=== PATIENT | female | born 1940 | race Caucasian/White ===

== ENCOUNTER 2016-07-10 15:29 | Emergency (ER) | payer OTHER, MEDICAID ==
[~2016-07-10] VITALS: Ht 154.9 cm; Wt 49.9 kg
[2016-07-10 16:30] VITALS: BP_SYST 137
[2016-07-10 18:30] VITALS: BP_SYST 128
== END 2016-07-10 18:30 | disposition home or self-care (01) ==
LOC: SED 15:29
DX: H61.22 Impacted cerumen, left ear (principal)
CPT/HCPCS: 99282

== ENCOUNTER 2016-09-13 13:15 | Emergency (ER) | payer OTHER, MEDICAID ==
[~2016-09-13] VITALS: Ht 157.5 cm; Wt 70.3 kg
[2016-09-13 13:41] VITALS: BP_SYST 145
[2016-09-13 13:58] VITALS: BP_SYST 145
== END 2016-09-13 13:58 | disposition home or self-care (01) ==
LOC: SED 13:15
DX: J02.9 Acute pharyngitis, unspecified (principal); F41.9 Anxiety disorder, unspecified; T36.0X5A Adverse effect of penicillins, initial encounter; Y92.89 Other specified places as the place of occurrence of the external cause
CPT/HCPCS: 99283

== ENCOUNTER 2016-10-01 10:15 | Emergency (ER) | payer OTHER, MEDICAID ==
[~2016-10-01] VITALS: Ht 157.5 cm; Wt 49.9 kg
[2016-10-01 10:25] VITALS: BP_SYST 129
--- NOTE | 2016-10-01 10:25 | NUR ---
Placed in room 8 . To gown for exam. Side rails up.Report given to felicia MEJIA .
--- NOTE | 2016-10-01 10:26 | NUR ---
Pt stable, states has had rash to right chest for four days w/ itchiness and slight pain to touch, denies any chest pain/SOB, denies any allergies/sensitivities or use of new products/foods. Reddened area noted to right upper chest, not raised. No other complaints/injuries per pt or noted.
--- NOTE | 2016-10-01 10:31 | NUR ---
ER at bedside examining patient.
[2016-10-01 10:57] VITALS: BP_SYST 125
--- NOTE | 2016-10-01 10:57 | NUR ---
Patient given written and verbal discharge instructions and verbalizes understanding. ER MD discussed with patient the results and treatment provided. Patient in stable condition. ID arm band removed. 2 RX given. Patient educated on pain management and to follow up with PMD within 2 days. Opportunity for questions provided and answered.
== END 2016-10-01 10:57 | disposition home or self-care (01) ==
LOC: SED 10:15
DX: L30.9 Dermatitis, unspecified (principal); H61.23 Impacted cerumen, bilateral
CPT/HCPCS: 99283

== ENCOUNTER 2017-01-30 11:02 | Emergency (ER) | payer OTHER, MEDICAID ==
[~2017-01-30] VITALS: Ht 167.6 cm; Wt 52.2 kg
[2017-01-30 11:02] VITALS: BP_SYST 139
--- NOTE | 2017-01-30 11:08 | NUR ---
Ambulatory to bed 1
--- NOTE | 2017-01-30 11:10 | NUR ---
Pt complains of headache since this morning. Per patient, woke up with headache. Pt denies fever, N/V, or diarrhea. Pt also complains of right shoulder pain. No deformities or bruising noted. Pt is not in distress. No other injuries/complaints per patient or noted.
--- NOTE | 2017-01-30 11:59 | NUR ---
Dr. Ortega at bedside for evaluation
[2017-01-30 12:34] LABS: BASOPHILS % (AUTO) 0.7 % (0.0-2.0); EOSINOPHILS # (AUTO) 0.2 K/uL (0.0-0.4); HEMATOCRIT 38.3 % (36-48); HEMOGLOBIN 12.6 g/dL (12.0-16.0); LYMPHOCYTES # (AUTO) 1.5 K/uL (1.0-5.5); LYMPHOCYTES % (AUTO) 29.6 % (20.5-51.5); MEAN CORPUSCULAR HEMOGLOBIN 29 pg (27-31); MEAN CORPUSCULAR HGB CONC 33 % (32-36); MEAN CORPUSCULAR VOLUME 88 fL (79.0-98.0); MONOCYTES # (AUTO) 0.4 K/uL (0.0-1.0); MONOCYTES % (AUTO) 7.8 % (1.7-9.3); NEUTROPHILS # (AUTO) 3.1 K/uL (1.8-7.7); NEUTROPHILS % (AUTO) 57.9 % (40.0-70.0); PLATELET COUNT (AUTO) 259 K/uL (130-430); RED BLOOD CELL COUNT(AUTO) 4.34 MIL/uL (4.2-6.2); RED CELL DISTRIBUTION WIDTH 11.5 % (9.0-15.0); WHITE BLOOD COUNT (AUTO) 5.2 K/uL (4.8-10.8)
--- NOTE | 2017-01-30 12:35 | NUR ---
TAKEN TO RADIOLOGY VIA [facility]
--- NOTE | 2017-01-30 12:45 | NUR ---
Pt returned from radiology in stable condition.
[2017-01-30 12:46] LABS: ANION GAP 7 (5-15); CALCIUM 8.4 mg/dL (8.4-11.0); CHLORIDE 106 mmol/L (98-107); CREATININE 0.82 mg/dL (0.55-1.30); GLUCOSE 88 mg/dL (70-99); POTASSIUM 3.7 mmol/L (3.5-5.1); SODIUM SERUM 139 mmol/L (136-145); UREA NITROGEN, BLOOD 15 mg/dL (8-21)
[2017-01-30 12:49] LABS: PROTHROMBIN TIME 9.9 SECS (9.5-12.5)
[2017-01-30 13:05] LABS: ALANINE AMINOTRANSFERASE 21 U/L (12-78); ALBUMIN 3.9 g/dL (3.4-4.8); ASPARTATE AMINOTRANSFERASE 17 U/L (10-37); THYROID STIMULATING HORMONE 1.18 uIu/mL (0.34-4.82); TOTAL BILIRUBIN 0.4 mg/dL (0.0-1.0)
--- NOTE | 2017-01-30 13:26 | NUR ---
Pt resting comfortably in bed. Will continue to monitor.
[2017-01-30 13:40] LABS: BILIRUBIN,URINE NEGATIVE (NEGATIVE); BLOOD, URINE NEGATIVE (NEGATIVE); CLARITY/URINE SL HAZY (CLEAR); COLOR,URINE YELLOW (YELLOW); GLUCOSE,URINE NEGATIVE (NEGATIVE); KETONES,URINE NEGATIVE (NEGATIVE); LEUKOCYTE ESTERASE ,URINE NEGATIVE (NEGATIVE); NITRITE, URINE NEGATIVE (NEGATIVE); PH,URINE 5.5 (5.0-8.0); PROTEIN URINE NEGATIVE (NEGATIVE); UROBILINOGEN,URINE 0.2 (0.2-1.0)
[2017-01-30] MEDS ORDERED: ACETAMINOPHEN 325 MG TABLET PO ONE (14:15)
[2017-01-30 14:50] VITALS: BP_SYST 137
--- NOTE | 2017-01-30 14:50 | NUR ---
Patient given written and verbal discharge instructions and verbalizes understanding. ER MD discussed with patient the results and treatment provided. Patient in stable condition. ID arm band removed. No Rx given. Patient educated on pain management and to follow up with PMD. Pain Scale 2. Opportunity for questions provided and answered.
== END 2017-01-30 14:50 | disposition home or self-care (01) ==
LOC: SED 11:02
DX: G43.909 Migraine, unspecified, not intractable, without status migrainosus (principal); M25.512 Pain in left shoulder
CPT/HCPCS: 36415; 70450-TC; 71010; 73030; 74000-TC; 80053; 81003; 83880; 84443-TC; 84484; 85025; 85610-TC; 93005; 99285

== ENCOUNTER 2017-04-13 10:06 | Emergency (ER) | payer MEDICAID, OTHER ==
[~2017-04-13] VITALS: Ht 152.4 cm; Wt 49.9 kg
[2017-04-13 10:13] VITALS: BP_SYST 129
[2017-04-13] MEDS ORDERED: IBUPROFEN 600 MG TABLET PO ONE (10:45)
[2017-04-13] MEDS ORDERED: HYDROcodone/ACETAMIN 7.5-325 MG TAB PO ONE (10:45)
[2017-04-13 10:55] LABS: BASOPHILS # (AUTO) 0.1 K/uL (0.0-0.2); EOSINOPHILS # (AUTO) 0.4 K/uL (0.0-0.4); EOSINOPHILS % (AUTO) 7.2 % (0.0-4.0); HEMATOCRIT 41.2 % (36-48); HEMOGLOBIN 13.8 g/dL (12.0-16.0); LYMPHOCYTES # (AUTO) 1.4 K/uL (1.0-5.5); LYMPHOCYTES % (AUTO) 22.2 % (20.5-51.5); MEAN CORPUSCULAR HEMOGLOBIN 30 pg (27-31); MEAN CORPUSCULAR HGB CONC 34 % (32-36); MEAN CORPUSCULAR VOLUME 88 fL (79.0-98.0); MONOCYTES # (AUTO) 0.4 K/uL (0.0-1.0); NEUTROPHILS # (AUTO) 3.9 K/uL (1.8-7.7); NEUTROPHILS % (AUTO) 63.6 % (40.0-70.0); PLATELET COUNT (AUTO) 305 K/uL (130-430); RED BLOOD CELL COUNT(AUTO) 4.67 MIL/uL (4.2-6.2); WHITE BLOOD COUNT (AUTO) 6.2 K/uL (4.8-10.8)
[2017-04-13 11:09] LABS: ANION GAP 4 (5-15); CALCIUM 9.7 mg/dL (8.4-11.0); CHLORIDE 103 mmol/L (98-107); CREATININE 0.72 mg/dL (0.55-1.30); GLUCOSE 116 mg/dL (70-99); SODIUM SERUM 138 mmol/L (136-145); UREA NITROGEN, BLOOD 19 mg/dL (8-21)
[2017-04-13 11:11] LABS: PROTHROMBIN TIME 9.7 SECS (9.5-12.5)
[2017-04-13 11:14] LABS: ALANINE AMINOTRANSFERASE 27 U/L (12-78); ASPARTATE AMINOTRANSFERASE 26 U/L (10-37); TOTAL BILIRUBIN 0.4 mg/dL (0.0-1.0)
[2017-04-13 11:19] LABS: BILIRUBIN,URINE NEGATIVE (NEGATIVE); CLARITY/URINE CLEAR (CLEAR); COLOR,URINE YELLOW (YELLOW); GLUCOSE,URINE NEGATIVE (NEGATIVE); KETONES,URINE NEGATIVE (NEGATIVE); LEUKOCYTE ESTERASE ,URINE NEGATIVE (NEGATIVE); NITRITE, URINE NEGATIVE (NEGATIVE); PH,URINE 6.5 (5.0-8.0); PROTEIN URINE NEGATIVE (NEGATIVE); UROBILINOGEN,URINE 0.2 (0.2-1.0)
[2017-04-13 11:20] LABS: BLOOD, URINE TRACE (NEGATIVE)
[2017-04-13 11:26] LABS: BACTERIA,URINE RARE /HPF (None Seen); RBC,URINE 0-3 /HPF (0-3); WBC,URINE 0-3 /HPF (0-3)
[2017-04-13 12:42] VITALS: BP_SYST 122
== END 2017-04-13 12:42 | disposition home or self-care (01) ==
LOC: SED 10:06
DX: R51 Headache (principal)
CPT/HCPCS: 36415; 80053; 81000-TC; 85025; 85610-TC; 85730-TC; 99284

== ENCOUNTER 2017-07-21 13:19 | Emergency (ER) | payer OTHER ==
[~2017-07-21] VITALS: Ht 154.9 cm; Wt 52.2 kg
[2017-07-21 13:28] VITALS: BP_SYST 122
[2017-07-21] MEDS ORDERED: KETOROLAC TROMETHAMINE 60 MG/2 ML VIAL IM ONE (14:00)
[2017-07-21] MEDS ORDERED: IBUPROFEN 600 MG TABLET PO ONE (14:15)
[2017-07-21 14:21] VITALS: BP_SYST 122
== END 2017-07-21 14:21 | disposition home or self-care (01) ==
LOC: SED 13:19
DX: J02.9 Acute pharyngitis, unspecified (principal); G43.909 Migraine, unspecified, not intractable, without status migrainosus
CPT/HCPCS: 99283; J1885

== ENCOUNTER 2018-01-01 08:47 | Emergency (ER) | payer OTHER ==
[~2018-01-01] VITALS: Ht 165.1 cm; Wt 51.7 kg
--- NOTE | 2018-01-01 08:47 | NUR ---
Patient placed in bed 7 here for headache along with sore throat since yesterday. Pt self medicated with "Excedrin" yesterday with no relief.
[2018-01-01 08:54] VITALS: BP_SYST 117
--- NOTE | 2018-01-01 09:00 | NUR ---
MD White at bedside.
[2018-01-01] MEDS ORDERED: KETOROLAC TROMETHAMINE 30 MG VIAL IM ONE (09:15)
[2018-01-01] MEDS ORDERED: PROCHLORPERAZINE EDISYLATE 10 MG/2 ML VIAL IM ONE (09:15)
--- NOTE | 2018-01-01 09:21 | NUR ---
Patient requesting to PO meds instead of IM Injections. MD White made aware of pt request.
[2018-01-01] MEDS ORDERED: IBUPROFEN 600 MG TABLET PO ONE (09:30)
--- NOTE | 2018-01-01 09:38 | NUR ---
Patient given written and verbal discharge instructions and verbalizes understanding. ER MD discussed with patient the results and treatment provided. Patient in stable condition. ID arm band removed. Rx of cepacol,tramadol given. Patient educated on pain management and to follow up with PMD. Pain Scale . Opportunity for questions provided and answered. Medication side effect fact sheet provided.
[2018-01-01 09:49] VITALS: BP_SYST 121
== END 2018-01-01 09:38 | disposition home or self-care (01) ==
LOC: SED 08:47
DX: G43.909 Migraine, unspecified, not intractable, without status migrainosus (principal); J02.9 Acute pharyngitis, unspecified; H53.149 Visual discomfort, unspecified
CPT/HCPCS: 99283; J0780; J1885

== ENCOUNTER 2018-06-21 00:58 | Inpatient (IN) | payer OTHER ==
[~2018-06-21] VITALS: Ht 137.2 cm; Wt 49.9 kg
[2018-06-21 01:30] VITALS: BP_SYST 130
[2018-06-21] MEDS ORDERED: KETOROLAC TROMETHAMINE 30 MG VIAL IVP ONE ×2 (02:00→05:15)
[2018-06-21 02:19] LABS: MEAN CORPUSCULAR HEMOGLOBIN 30 pg (27-31); MEAN CORPUSCULAR HGB CONC 33 % (32-36); MEAN CORPUSCULAR VOLUME 89 fL (79.0-98.0); NEUTROPHILS % (AUTO) 60.9 % (40.0-70.0); PLATELET COUNT (AUTO) 239 K/uL (130-430); RED BLOOD CELL COUNT(AUTO) 2.18 MIL/uL (4.2-6.2); RED CELL DISTRIBUTION WIDTH 13.2 % (9.0-15.0); WHITE BLOOD COUNT (AUTO) 5.4 K/uL (4.8-10.8)
[2018-06-21 02:20] LABS: BASOPHILS % (AUTO) 0.9 % (0.0-2.0); EOSINOPHILS # (AUTO) 0.2 K/uL (0.0-0.4); EOSINOPHILS % (AUTO) 3.4 % (0.0-4.0); LYMPHOCYTES # (AUTO) 1.5 K/uL (1.0-5.5); LYMPHOCYTES % (AUTO) 28.2 % (20.5-51.5); MONOCYTES # (AUTO) 0.4 K/uL (0.0-1.0); MONOCYTES % (AUTO) 6.6 % (1.7-9.3); NEUTROPHILS # (AUTO) 3.3 K/uL (1.8-7.7)
[2018-06-21 02:23] LABS: ANION GAP 9 (5-15); CALCIUM 8.5 mg/dL (8.4-11.0); CHLORIDE 107 mmol/L (98-107); CREATININE 0.91 mg/dL (0.55-1.30); GLUCOSE 104 mg/dL (70-99); POTASSIUM 3.7 mmol/L (3.5-5.1); SODIUM SERUM 140 mmol/L (136-145); UREA NITROGEN, BLOOD 21 mg/dL (8-21)
[2018-06-21 02:27] LABS: HEMOGLOBIN 6.4 g/dL (12.0-16.0)
[2018-06-21 02:28] LABS: HEMATOCRIT 19.4 % (36-48)
[2018-06-21 02:29] LABS: ALANINE AMINOTRANSFERASE 18 U/L (12-78); ALBUMIN 3.4 g/dL (3.4-4.8); ASPARTATE AMINOTRANSFERASE 18 U/L (10-37); LIPASE 170 U/L (73-393); TOTAL BILIRUBIN 0.2 mg/dL (0.0-1.0)
[2018-06-21] MEDS ORDERED: NACL 0.9% 1,000 ML IV ONE (02:30)
[2018-06-21 03:19] LABS: BILIRUBIN,URINE NEGATIVE (NEGATIVE); BLOOD, URINE NEGATIVE (NEGATIVE); CLARITY/URINE CLEAR (CLEAR); COLOR,URINE YELLOW (YELLOW); GLUCOSE,URINE NEGATIVE (NEGATIVE); KETONES,URINE NEGATIVE (NEGATIVE); LEUKOCYTE ESTERASE ,URINE TRACE (NEGATIVE); NITRITE, URINE NEGATIVE (NEGATIVE); PROTEIN URINE NEGATIVE (NEGATIVE); UROBILINOGEN,URINE 0.2 (0.2-1.0)
[2018-06-21 03:22] LABS: INR 0.9 (0.8-1.2); PROTHROMBIN TIME 9.5 SECS (9.5-12.5)
[2018-06-21 03:52] LABS: BACTERIA,URINE FEW /HPF (None Seen); RBC,URINE 0-3 /HPF (0-3)
[2018-06-21] MEDS ORDERED: LEVOFLOXACIN 500 MG/D5W 100 ML IV ONE (05:15)
[2018-06-21] MEDS ORDERED: KETOROLAC TROMETHAMINE 30 MG VIAL ONE (05:21)
[2018-06-21] MEDS ORDERED: ONDANSETRON HCL 4 MG/2 ML VIAL IVP PRN (06:15)
[2018-06-21] MEDS ORDERED: PROCHLORPERAZINE EDISYLATE 10 MG/2 ML VIAL IVP ONE (06:15)
[2018-06-21] MEDS ORDERED: LORazepam 2 MG/ML VIAL IVP PRN (06:15)
[2018-06-21] MEDS ORDERED: DIPHENHYDRAMINE INJ 50 MG/ML VIAL IVP ONE (06:15)
[2018-06-21] MEDS ORDERED: LEVOFLOXACIN 500 MG/D5W 100 ML IV SCH (06:15)
[2018-06-21 06:43] VITALS: BP_SYST 110
[2018-06-21 12:50] VITALS: BP_SYST 112
[2018-06-21] MEDS: NORMAL SALINE 5 ML DISP.SYRIN IVF SCH ×4 (14:00→21:22)
[2018-06-21 16:43] VITALS: BP_SYST 104
[2018-06-21 19:24] VITALS: BP_SYST 136
[2018-06-22] MEDS: ACETAMINOPHEN 325 MG TABLET PO PRN (04:19)
[2018-06-22] MEDS: NORMAL SALINE 5 ML DISP.SYRIN IVF SCH ×6 (06:15→21:04)
[2018-06-22] MEDS: fentaNYL CITRATE/PF 100 MCG/2 ML AMP ONE ×3 (07:06→08:21)
[2018-06-22] MEDS: MIDAZOLAM HCL 5 MG/5 ML VIAL ONE ×4 (07:06→08:22)
[2018-06-22 07:08] LABS: ANION GAP 8 (5-15); CALCIUM 8.3 mg/dL (8.4-11.0); CHLORIDE 109 mmol/L (98-107); CREATININE 0.95 mg/dL (0.55-1.30); GLUCOSE 89 mg/dL (70-99); POTASSIUM 3.9 mmol/L (3.5-5.1); SODIUM SERUM 143 mmol/L (136-145); UREA NITROGEN, BLOOD 13 mg/dL (8-21)
[2018-06-22] MEDS ORDERED: SIMETHICONE 40 MG/0.6 ML ML ONE (07:27)
[2018-06-22 08:00] VITALS: BP_SYST 136
[2018-06-22 08:48] LABS: HEMOGLOBIN 7.8 g/dL (12.0-16.0); MEAN CORPUSCULAR VOLUME 87 fL (79.0-98.0); RED BLOOD CELL COUNT(AUTO) 2.66 MIL/uL (4.2-6.2); WHITE BLOOD COUNT (AUTO) 4.9 K/uL (4.8-10.8)
[2018-06-22 08:49] LABS: EOSINOPHILS # (AUTO) 0.3 K/uL (0.0-0.4); EOSINOPHILS % (AUTO) 5.7 % (0.0-4.0); LYMPHOCYTES # (AUTO) 0.9 K/uL (1.0-5.5); LYMPHOCYTES % (AUTO) 18.8 % (20.5-51.5); MEAN CORPUSCULAR HEMOGLOBIN 30 pg (27-31); MEAN CORPUSCULAR HGB CONC 34 % (32-36); MONOCYTES # (AUTO) 0.3 K/uL (0.0-1.0); MONOCYTES % (AUTO) 6.6 % (1.7-9.3); NEUTROPHILS # (AUTO) 3.3 K/uL (1.8-7.7); NEUTROPHILS % (AUTO) 67.9 % (40.0-70.0); PLATELET COUNT (AUTO) 204 K/uL (130-430); RED CELL DISTRIBUTION WIDTH 13.6 % (9.0-15.0)
[2018-06-22 08:54] LABS: TOTAL IRON BIND. CAPACITY 303 ug/dL (250-450)
[2018-06-22 09:00] VITALS: BP_SYST 127
[2018-06-22] MEDS ORDERED: BENZOCAINE 20% 0.5mL UD SPRAY MM ONE (09:09)
[2018-06-22] MEDS: LEVOFLOXACIN 500 MG/D5W 100 ML IV SCH (09:14)
[2018-06-22] MEDS ORDERED: PANTOPRAZOLE GRANULES PACKET 40 MG GT ONE (10:45)
[2018-06-22] MEDS ORDERED: PANTOPRAZOLE SODIUM 40 MG TAB PO ONE (10:45)
[2018-06-22 12:27] LABS: BILIRUBIN,URINE NEGATIVE (NEGATIVE); BLOOD, URINE NEGATIVE (NEGATIVE); CLARITY/URINE CLEAR (CLEAR); COLOR,URINE YELLOW (YELLOW); GLUCOSE,URINE NEGATIVE (NEGATIVE); KETONES,URINE NEGATIVE (NEGATIVE); LEUKOCYTE ESTERASE ,URINE NEGATIVE (NEGATIVE); NITRITE, URINE NEGATIVE (NEGATIVE); PROTEIN URINE NEGATIVE (NEGATIVE); UROBILINOGEN,URINE 0.2 (0.2-1.0)
[2018-06-22 13:07] VITALS: BP_SYST 124
[2018-06-22 16:46] VITALS: BP_SYST 115
[2018-06-22 19:50] VITALS: BP_SYST 137
[2018-06-22] MEDS: HYDROcodone/ACETAMIN 5-325 MG TAB (NORCO/ VICODIN) PO PRN ×2 (20:29→21:50)
[2018-06-23 01:31] VITALS: BP_SYST 110
[2018-06-23] MEDS: ACETAMINOPHEN 325 MG TABLET PO PRN (01:38)
[2018-06-23] MEDS: HYDROcodone/ACETAMIN 10-325 MG TAB PO PRN ×2 (04:05→08:35)
[2018-06-23 06:45] LABS: ANION GAP 9 (5-15); CALCIUM 8.3 mg/dL (8.4-11.0); CHLORIDE 107 mmol/L (98-107); CREATININE 0.94 mg/dL (0.55-1.30); GLUCOSE 105 mg/dL (70-99); POTASSIUM 3.5 mmol/L (3.5-5.1); SODIUM SERUM 140 mmol/L (136-145); UREA NITROGEN, BLOOD 12 mg/dL (8-21)
[2018-06-23] MEDS: NORMAL SALINE 5 ML DISP.SYRIN IVF SCH ×4 (06:52→14:51)
[2018-06-23 07:41] LABS: C-REACTIVE PROTEIN QUANT < 0.2 mg/dL (0-0.5)
[2018-06-23 07:50] LABS: HEMATOCRIT 24.7 % (36-48); HEMOGLOBIN 8.3 g/dL (12.0-16.0); LYMPHOCYTES % (AUTO) 20.9 % (20.5-51.5); MEAN CORPUSCULAR HEMOGLOBIN 29 pg (27-31); MEAN CORPUSCULAR HGB CONC 34 % (32-36); MEAN CORPUSCULAR VOLUME 86 fL (79.0-98.0); NEUTROPHILS % (AUTO) 68.9 % (40.0-70.0); PLATELET COUNT (AUTO) 231 K/uL (130-430); RED BLOOD CELL COUNT(AUTO) 2.86 MIL/uL (4.2-6.2); RED CELL DISTRIBUTION WIDTH 13.6 % (9.0-15.0); WHITE BLOOD COUNT (AUTO) 5.3 K/uL (4.8-10.8)
[2018-06-23 07:51] LABS: BASOPHILS % (AUTO) 0.9 % (0.0-2.0); EOSINOPHILS # (AUTO) 0.2 K/uL (0.0-0.4); EOSINOPHILS % (AUTO) 3.6 % (0.0-4.0); LYMPHOCYTES # (AUTO) 1.1 K/uL (1.0-5.5); MONOCYTES # (AUTO) 0.3 K/uL (0.0-1.0); MONOCYTES % (AUTO) 5.7 % (1.7-9.3); NEUTROPHILS # (AUTO) 3.7 K/uL (1.8-7.7)
[2018-06-23 08:03] VITALS: BP_SYST 120
[2018-06-23] MEDS: LEVOFLOXACIN 500 MG/D5W 100 ML IV SCH (08:36)
[2018-06-23] MEDS ORDERED: PANTOPRAZOLE SODIUM 40 MG TAB PO SCH (09:00)
[2018-06-23] MEDS ORDERED: PANTOPRAZOLE GRANULES PACKET 40 MG GT SCH (09:00)
[2018-06-23 09:55] LABS: ERYTHROCYTE SEDIMENTATION RATE 8 MM/HR (0-20)
[2018-06-23 12:09] LABS: FOLATE (FOLIC ACID) 15.7 ng/mL (>3.0)
[2018-06-23 12:12] VITALS: BP_SYST 129
[2018-06-23] MEDS ORDERED: Ferrous Sulfate PO (13:30)
[2018-06-23] MEDS ORDERED: PRO40 PO (13:30)
[2018-06-23] MEDS ORDERED: LEVO750T45 PO (13:30)
[2018-06-23 14:54] VITALS: BP_SYST 129
[2018-06-23 16:56] VITALS: BP_SYST 155
[2018-06-23] MEDS ORDERED: FERROUS SULFATE 325 MG TABLET.DR PO SCH (21:00)
== END 2018-06-23 17:28 | disposition home or self-care (01) | DRG 811 ==
LOC: SED 00:58 → SMU 05:55
PROVIDERS: ADMIT Preventive Medicine Preventive Medicine/Occupational Environmental Medicine; ATTEND Preventive Medicine Preventive Medicine/Occupational Environmental Medicine
PROC: 30233N1 Transfusion of Nonautologous Red Blood Cells into Peripheral Vein, Percutaneous Approach (ICD-10-PCS; 2018-06-21)
PROC: 0DB68ZX Excision of Stomach, Via Natural or Artificial Opening Endoscopic, Diagnostic (ICD-10-PCS; principal; 2018-06-22 08:00)
DX: D62 Acute posthemorrhagic anemia (principal); K29.71 Gastritis, unspecified, with bleeding; K25.4 Chronic or unspecified gastric ulcer with hemorrhage; N39.0 Urinary tract infection, site not specified; K52.9 Noninfective gastroenteritis and colitis, unspecified; R73.9 Hyperglycemia, unspecified; E78.5 Hyperlipidemia, unspecified; W19.XXXA Unspecified fall, initial encounter; Y93.89 Activity, other specified; Y92.89 Other specified places as the place of occurrence of the external cause; Y99.8 Other external cause status
CPT/HCPCS: 36415; 43239; 74021; 80048; 80053; 81000-TC; 81003; 82272; 82607; 82728; 82746; 83540-TC; 83550-TC; 83690-TC; 85025; 85610-TC; 85651-TC; 85730-TC; 86140; 86886; 86900; 86901; 86920; 87040-TC; 87045-TC; 87046; 87081; 87086; 87177; 87207; 88305; 88312; 88313; 89055; 93005; 93306; 93880; 96361; 96365; 96375; 97110-GP; 97116-GP; 97530-GP; 99285; J0780; J1200; J1885; J1956; J2250; J3010; J7030; J7050; P9021

== ENCOUNTER 2018-10-19 21:30 | Inpatient (IN) | payer OTHER ==
[~2018-10-19] VITALS: Ht 167.6 cm; Wt 44.9 kg
[~2018-10-19 21:30] MED LIST: Ferrous Sulfate PO; LEVO750T45 PO; PRO40 PO
[2018-10-19 21:35] VITALS: BP_SYST 126
--- NOTE | 2018-10-19 21:56 | NUR ---
Patient to ER bed 3 to gown for evaluation. Side rails up. Report received from ROBERTO Carrera.
--- NOTE | 2018-10-19 21:57 | NUR ---
Pt is ambulatory c/o abdominal pain after traveling to [facility]. Pt also states she noticed black stool. Pt denies N/V, fever, SOB. No other injuries/complaints per patient or noted.
--- NOTE | 2018-10-19 22:17 | NUR ---
ER Dr. Bailey at bedside examining patient.
[2018-10-19] MEDS ORDERED: NACL 0.9% 1,000 ML IV ONE (22:36)
[2018-10-19] MEDS ORDERED: PANTOPRAZOLE SODIUM 40 MG/VIAL (PROTONIX) IVP ONE (22:45)
[2018-10-19 22:53] LABS: BILIRUBIN,URINE NEGATIVE (NEGATIVE); BLOOD, URINE NEGATIVE (NEGATIVE); CLARITY/URINE CLEAR (CLEAR); COLOR,URINE YELLOW (YELLOW); GLUCOSE,URINE NEGATIVE (NEGATIVE); KETONES,URINE NEGATIVE (NEGATIVE); LEUKOCYTE ESTERASE ,URINE 2+ (NEGATIVE); NITRITE, URINE NEGATIVE (NEGATIVE); PROTEIN URINE NEGATIVE (NEGATIVE); UROBILINOGEN,URINE 0.2 (0.2-1.0)
[2018-10-19 23:00] LABS: BACTERIA,URINE FEW /HPF (None Seen); RBC,URINE 0-3 /HPF (0-3); WBC,URINE 20-50 /HPF (0-3)
[2018-10-19 23:01] LABS: MUCUS,URINE None Seen /LPF (None Seen)
[2018-10-19 23:09] LABS: BASOPHILS % (AUTO) 0.6 % (0.0-2.0); EOSINOPHILS % (AUTO) 0.3 % (0.0-4.0); HEMATOCRIT 23.1 % (36-48); HEMOGLOBIN 7.7 g/dL (12.0-16.0); LYMPHOCYTES # (AUTO) 1.3 K/uL (1.0-5.5); LYMPHOCYTES % (AUTO) 26.6 % (20.5-51.5); MEAN CORPUSCULAR HEMOGLOBIN 29 pg (27-31); MEAN CORPUSCULAR HGB CONC 33 % (32-36); MEAN CORPUSCULAR VOLUME 86 fL (79.0-98.0); MONOCYTES # (AUTO) 0.4 K/uL (0.0-1.0); MONOCYTES % (AUTO) 8.3 % (1.7-9.3); NEUTROPHILS # (AUTO) 3.2 K/uL (1.8-7.7); NEUTROPHILS % (AUTO) 64.2 % (40.0-70.0); PLATELET COUNT (AUTO) 205 K/uL (130-430); RED BLOOD CELL COUNT(AUTO) 2.69 MIL/uL (4.2-6.2); WHITE BLOOD COUNT (AUTO) 5.1 K/uL (4.8-10.8)
--- NOTE | 2018-10-19 23:15 | NUR ---
Medications were given, pt tolerated well. No adverse reaction, will continue to monitor.
[2018-10-19 23:27] LABS: PROTHROMBIN TIME 9.9 SECS (9.5-12.5)
[2018-10-19 23:31] LABS: ANION GAP 12 (5-15); CALCIUM 8.5 mg/dL (8.4-11.0); CHLORIDE 103 mmol/L (98-107); CREATININE 1.08 mg/dL (0.55-1.30); GLUCOSE 105 mg/dL (70-99); POTASSIUM 3.3 mmol/L (3.5-5.1); SODIUM SERUM 139 mmol/L (136-145); UREA NITROGEN, BLOOD 12 mg/dL (8-21)
[2018-10-19 23:35] LABS: ALANINE AMINOTRANSFERASE 24 U/L (12-78); ALBUMIN 3.7 g/dL (3.4-4.8); ASPARTATE AMINOTRANSFERASE 20 U/L (10-37); LIPASE 156 U/L (73-393); TOTAL BILIRUBIN 0.6 mg/dL (0.0-1.0)
--- NOTE | 2018-10-20 01:18 | NUR ---
Spoke with son, FAM and he gave consent for blood transfusion along with stating mother is FULL CODE.
--- NOTE | 2018-10-20 01:25 | NUR ---
Transfer to Telemetry via ACLS protocol. Licensed nurse present. IV present no signs or symptoms of infiltration.
--- NOTE | 2018-10-20 01:25 | NUR ---
Patient will be admitted to care of Dr. Golden. Admitted to Telemetry unit. Will go to room 133 B. Belongings list completed. Summary report printed. Report will be given at bedside.
[2018-10-20] MEDS ORDERED: LORazepam 1 MG TABLET PO ONE (01:45)
--- NOTE | 2018-10-20 01:45 | NUR ---
ADMISSION: The patient, CAPRICE OSORIO, 77 y/o, F admitted by GENEVA FULTON MD, was given written information regarding hospital policies, unit procedures and contact persons.
--- NOTE | 2018-10-20 01:53 | NUR ---
CONSULT: GI DR. DR. 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 FULTON
[2018-10-20 01:58] VITALS: BP_SYST 134
[2018-10-20] MEDS ORDERED: PANTOPRAZOLE SODIUM 80 MG in NS 100 ML IV SCH (02:00)
[2018-10-20] MEDS ORDERED: cefTRIAXone 1 GM in D5W 50 ML IV SCH (02:00)
[2018-10-20] MEDS ORDERED: PANTOPRAZOLE SODIUM 40 MG/VIAL (PROTONIX) ONE ×2 (02:17→02:18)
[2018-10-20] MEDS ORDERED: cefTRIAXone 1 GM IVPB PREMIX 0 ML IV ONE (02:36)
[2018-10-20] MEDS ORDERED: cefTRIAXone 1 GM IVPB PREMIX 50 ML IV ONE (02:42)
--- NOTE | 2018-10-20 02:45 | NUR ---
BT INITIATION: Consent signed agreeing to administration of blood. Blood has been type and crossmatched. Blood sent from blood bank. Information on unit of blood checked against patient wristband at bedside by two nurses. All information matches. Patient or responsible republican informed of potential complications associated with blood transfusion. Informed of possible transfusion reaction symptoms. Aware of need to notify nurse at once of itching, shortness of breath, flushing, feeling of impending doom, or other symptoms not previously present. Vital signs taken within 5 minutes prior to initiation of transfusion. RN will remain with patient for first 15 minutes of transfusion at which time vital signs will be re-assessed.
[2018-10-20] MEDS: PANTOPRAZOLE SODIUM 40 MG in NS 50 ML IV SCH ×5 (03:37→23:00)
--- NOTE | 2018-10-20 04:20 | NUR ---
RN ROUNDS: PT RESTING IN BED WITH NO S/S OF ACUTE DISTRESS. BREATHING IS UNLABORED TO ROOM AIR, VISIBLE RISE AND FALL OF CHEST, SOFT SNORE CAN BE HEARD. BLOOD TRANSFUSION IS INFUSING WITH NO SIGN OF ADVERSE REACTION. IVF INFUSING ORDERED. SAFETY PRECAUTIONS ARE IN PLACE: BED IS LOCKED IN LOWEST POSITION, CALL LIGHT IS WITH PT, SIDE RAILS UP X2, BED ALARM ON, CLOSE TO NURSES STATION. WILL MONITOR.
--- NOTE | 2018-10-20 05:00 | NUR ---
BT INITIATION SECOND UNIT: Consent signed agreeing to administration of blood. Blood has been type and crossmatched. Blood sent from blood bank. Information on unit of blood checked against patient wristband at bedside by two nurses. All information matches. Patient or responsible green party informed of potential complications associated with blood transfusion. Informed of possible transfusion reaction symptoms. Aware of need to notify nurse at once of itching, shortness of breath, flushing, feeling of impending doom, or other symptoms not previously present. Vital signs taken within 5 minutes prior to initiation of transfusion. RN will remain with patient for first 15 minutes of transfusion at which time vital signs will be re-assessed.
--- NOTE | 2018-10-20 07:20 | NUR ---
CLOSING NOTE PT RESTING IN BED IN NO ACUTE DISTRESS, BREATHING IS UNLABORED TO ROOM AIR. SECOND BLOOD TRANSFUSION WAS COMPLETED WITH NO PROBLEMS. PROTONIX DRIP IS INFUSING AT ORDERED RATE. SAFETY PRECAUTIONS MAINTAINED. ALL NEEDS MET DURING SHIFT. CARE ENDORSED TO ROBERTO SAMUEL.
[2018-10-20 08:07] VITALS: BP_SYST 128
--- NOTE | 2018-10-20 08:07 | NUR ---
OPENING NOTE patient resting in bed A&O x4, patient denies any acute distress or pain, breathing is even and unlabored on room air, IVF infusing as ordered, educated patient on plan of care and call light system, will continue to monitor, safety precautions in place, call light within reach.
--- NOTE | 2018-10-20 10:35 | NUR ---
NOTES ASSISTED PATIENT TO USE BEDPAN, PATIENT TOLERATED WELL WITH NO ACUTE DISTRESS, IV PROTONIX INFUSING ORDERED, PATIENT DENIES ANY PAIN OR DISCOMFORT, WILL CONTINUE TO MONITOR, SAFETY PRECAUTIONS IN PLACE, CALL LIGHT WITHIN REACH.
[2018-10-20] MEDS ORDERED: CYANOCOBALAMIN 1000 MCG/ML VIAL SUBCUT ONE (12:00)
--- NOTE | 2018-10-20 12:23 | NUR ---
NOTES PATIENT RESTING IN BED A&O X4, PATIENT TOLERATING CLEAR LIQUIDS WELL, PATIENT HAD A BOWEL MOVEMENT, NO ACUTE DISTRESS OR PAIN NOTED AT THIS TIME, BREATHING IS EVEN AND UNLABORED ON ROOM AIR, WILL CONTINUE TO MONITOR, SAFETY PRECAUTIONS IN PLACE, CALL LIGHT WITHIN REACH.
[2018-10-20] MEDS ORDERED: POTASSIUM CHLORIDE 20 MEQ TAB.PRT.SR PO ONE (12:30)
[2018-10-20] MEDS: SOD FERRIC GLUC COMPLEX/SUC 125 MG in NS 100 ML IV SCH (12:39)
[2018-10-20 12:46] VITALS: BP_SYST 109
[2018-10-20 12:49] LABS: BASOPHILS % (AUTO) 0.7 % (0.0-2.0); EOSINOPHILS % (AUTO) 0.9 % (0.0-4.0); HEMATOCRIT 31.7 % (36-48); HEMOGLOBIN 10.7 g/dL (12.0-16.0); LYMPHOCYTES # (AUTO) 1.3 K/uL (1.0-5.5); MEAN CORPUSCULAR HEMOGLOBIN 30 pg (27-31); MEAN CORPUSCULAR HGB CONC 34 % (32-36); MEAN CORPUSCULAR VOLUME 88 fL (79.0-98.0); MONOCYTES # (AUTO) 0.4 K/uL (0.0-1.0); MONOCYTES % (AUTO) 8.5 % (1.7-9.3); NEUTROPHILS # (AUTO) 3.1 K/uL (1.8-7.7); NEUTROPHILS % (AUTO) 63.9 % (40.0-70.0); PLATELET COUNT (AUTO) 157 K/uL (130-430); RED BLOOD CELL COUNT(AUTO) 3.62 MIL/uL (4.2-6.2); RED CELL DISTRIBUTION WIDTH 14.5 % (9.0-15.0); WHITE BLOOD COUNT (AUTO) 4.9 K/uL (4.8-10.8)
[2018-10-20 13:02] LABS: ANION GAP 5 (5-15); CALCIUM 8.1 mg/dL (8.4-11.0); CHLORIDE 107 mmol/L (98-107); GLUCOSE 113 mg/dL (70-99); POTASSIUM 3.6 mmol/L (3.5-5.1); SODIUM SERUM 137 mmol/L (136-145); UREA NITROGEN, BLOOD 11 mg/dL (8-21)
[2018-10-20 13:07] LABS: ALANINE AMINOTRANSFERASE 13 U/L (12-78); ALBUMIN 3.1 g/dL (3.4-4.8); ASPARTATE AMINOTRANSFERASE 18 U/L (10-37)
[2018-10-20 13:15] LABS: CREATININE 0.91 mg/dL (0.55-1.30)
--- NOTE | 2018-10-20 14:47 | NUR ---
NOTES PATIENT IS RESTING IN BED, ASSISTED PATIENT TO USE BATHROOM, PATIENT TOLERATED WELL, WILL CONTINUE TO MONITOR, SAFETY PRECAUTIONS IN PLACE, CALL LIGHT WITHIN REACH.
[2018-10-20 16:23] VITALS: BP_SYST 119
--- NOTE | 2018-10-20 16:50 | NUR ---
NOTES patient resting in bed A&Ox4, patient denies any acute distress or pain, breathing is even and unlabored on room air, family at bedside, assisted patient to use bathroom, will continue to monitor, safety precautions in place, call light within reach.
--- NOTE | 2018-10-20 18:50 | NUR ---
CLOSING NOTE patient is resting in bed A&O x4, patient denies any acute distress or pain, breathing is even and unlabored on room air, IVF infusing as ordered, all needs were met throughout shift, will endorse report to oncoming nurse, safety precautions in place, family at bedside, call light within reach.
--- NOTE | 2018-10-20 19:54 | NUR ---
Initial note: Received report from jasmin RN. Patient is awake in bed, alert and oriented x4, no acute distress. Tolerating room air. IV to left forearm noted, receiving Protonix drip as ordered. Right forearm IV site is saline locked. No complaints of pain at this time. Call light with patient. Bed locked in lowest position, side rails raised x3, bed alarm on. Will continue with plan of care.
[2018-10-20 20:00] VITALS: BP_SYST 122
[2018-10-20] MEDS: cefTRIAXone 1 GM in D5W 50 ML IV SCH (20:44)
--- NOTE | 2018-10-20 22:11 | NUR ---
Rounds: Patient is sitting up in bed awake. No acute distress. Tolerating room air. IV fluids infusing as ordered. Patient's son is present at bedside, teaching regarding EGD tomorrow reinforced. Call light with patient. Safety, fall precautions in place. Will continue to monitor.
[2018-10-20] MEDS ORDERED: TEMAZEPAM 15 MG CAPSULE PO PRN (22:45)
--- NOTE | 2018-10-20 23:08 | NUR ---
Rounds: Patient is awake in bed, family at bedside. Patient shows no acute distress. IV fluids infusing as ordered. Call light with patient. Will continue to monitor.
[2018-10-21 01:30] VITALS: BP_SYST 138
--- NOTE | 2018-10-21 02:22 | NUR ---
Rounds: Patient is asleep, no distress noted. Respirations are even and unlabored on room air. IV fluids infusing as ordered. Call light with patient, will continue to monitor.
[2018-10-21] MEDS: PANTOPRAZOLE SODIUM 40 MG in NS 50 ML IV SCH (04:07)
--- NOTE | 2018-10-21 05:19 | NUR ---
BRP: Patient safely ambulated with assist to the bathroom and back to bed, reported x1 void. Patient denies difficulty urinating. IV fluids infusing as ordered. Call light with patient. Will continue to monitor.
[2018-10-21] MEDS: MIDAZOLAM HCL 5 MG/5 ML VIAL ONE ×4 (06:29→08:11)
[2018-10-21] MEDS ORDERED: SIMETHICONE 40 MG/0.6 ML ML ONE (06:30)
[2018-10-21] MEDS: fentaNYL CITRATE/PF 100 MCG/2 ML AMP ONE ×3 (06:30→08:08)
--- NOTE | 2018-10-21 06:45 | NUR ---
Closing note: Patient is resting in bed, no distress. No complaints of pain, dizziness, shortness of breath. IV sites remain patent and benign. All needs met. Safety, fall precautions observed. Hourly rounding done throughout shift. All needs met. Will endorse care to dayshift RN.
[2018-10-21 07:19] LABS: PROTHROMBIN TIME 10.5 SECS (9.5-12.5)
[2018-10-21 09:00] VITALS: BP_SYST 122
--- NOTE | 2018-10-21 09:00 | NUR ---
OPENING NOTE patient back from EGD at this time, vital signs are stable, patient denies any acute distress or pain, breathing is even and unlabored on room air, educated patient and family on plan of care and call light system, will continue to monitor, safety precautions in place, call light within reach.
[2018-10-21] MEDS: PANTOPRAZOLE SODIUM 40 MG/VIAL (PROTONIX) IVP SCH ×2 (09:23→21:52)
--- NOTE | 2018-10-21 11:12 | NUR ---
NOTES patient is resting in bed A&O x4, patient denies any acute distress or pain, breathing is even and unlabored on room air, will continue to monitor, safety precautions in place, call light within reach.
[2018-10-21] MEDS: SOD FERRIC GLUC COMPLEX/SUC 125 MG in NS 100 ML IV SCH (12:11)
[2018-10-21 12:14] VITALS: BP_SYST 141
[2018-10-21] MEDS ORDERED: traMADol HCL HCL 50 MG TABLET (ULTRAM) PO PRN (13:00)
[2018-10-21] MEDS ORDERED: ACETAMINOPHEN 325 MG TABLET PO PRN (13:00)
[2018-10-21] MEDS ORDERED: ONDANSETRON HCL 4 MG/2 ML VIAL IVP PRN (13:00)
--- NOTE | 2018-10-21 13:15 | NUR ---
NOTES patient is resting in bed eating lunch, patient tolerating full liquids well, patient states she is having a headache from the sedatives this morning she does not want pain meds at this time, will continue to monitor, safety precautions in place, call light within reach.
--- NOTE | 2018-10-21 14:10 | NUR ---
CONSULT REASON FOR CONSULT: CONSULTING PHYSICIAN: DR. BANSAL (DOCTOR IS IN THE HOSPITAL AND SAW THE PATIENT) ORDERING PHYSICIAN: DR. UFLTON
--- NOTE | 2018-10-21 15:42 | NUR ---
NOTES PATIENT IS RESTING IN BED TALKING TO DAUGHTER, PATIENT DENIES ANY ACUTE DISTRESS OR PAIN AT THIS TIME, BREATHING IS EVEN AND UNLABORED ON ROOM AIR, WILL CONTINUE TO MONITOR, SAFETY PRECAUTIONS IN PLACE, CALL LIGHT WITHIN REACH.
[2018-10-21 16:05] VITALS: BP_SYST 137
--- NOTE | 2018-10-21 18:07 | NUR ---
CLOSING NOTE assisted patient to use bathroom, patient ambulated well with steady gait and assistance, patient now eating dinner in bed, patient denies any acute distress or pain, all needs were met throughout shift, will endorse report to oncoming nurse, safety precautions in place, daughter at bedside, call light within reach.
[2018-10-21 19:05] VITALS: BP_SYST 127
--- NOTE | 2018-10-21 19:05 | NUR ---
OPENING NOTE RECEIVED ENDORSEMENT REPORT FROM DAY NURSE LIZZIE AT BEDSIDE. PT RESTING IN BED, AOX4, IN NO ACUTE DISTRESS. PT'S SON AT BEDSIDE. PT DENIES PAIN OR DISCOMFORT. BREATHING IS UNLABORED TO ROOM AIR. IV ON RIGHT FA 20G. IV CLEAN, DRY AND INTACT. EDUCATED PT ON HOW TO USE CALL LIGHT AND ROOM PHONE. PT VERBALIZED UNDERSTANDING. SAFETY PRECAUTIONS ARE IN PLACE: BED IS LOCKED IN LOWEST POSITION, CALL LIGHT IS WITH PT, SIDE RAILS UP X2, BED ALARM ON. WILL CONTINUE POC AND MONITOR PT.
--- NOTE | 2018-10-21 20:15 | NUR ---
RN ROUNDS PT RESTING IN BED, IN NO ACUTE DISTRESS. PT DENIES PAIN OR DISCOMFORT. BREATHING IS UNLABORED TO ROOM AIR. SAFETY PRECAUTIONS ARE IN PLACE: BED IS LOCKED IN LOWEST POSITION, CALL LIGHT IS WITH PT, SIDE RAILS UP X2, BED ALARM ON. WILL CONTINUE POC AND MONITOR PT.
--- NOTE | 2018-10-21 21:45 | NUR ---
RN ROUNDS PT RESTING IN BED. PT IN NO ACUTE DISTRESS. PT DENIES PAIN OR DISCOMFORT. BREATHING IS UNLABORED TO ROOM AIR. VITAL SIGNS WNL. SCHEDULED MEDICATIONS ADMINISTERED ORDERED. PT TOLERATED WELL. SAFETY PRECAUTIONS ARE IN PLACE. WILL CONTINUE POC AND MONITOR PT.
[2018-10-21] MEDS: cefTRIAXone 1 GM in D5W 50 ML IV SCH (21:52)
--- NOTE | 2018-10-21 22:30 | NUR ---
RN ROUNDS PT RESTING IN BED. PT IN NO ACUTE DISTRESS. PT DENIES PAIN OR DISCOMFORT. BREATHING IS UNLABORED TO ROOM AIR. SAFETY PRECAUTIONS ARE IN PLACE. WILL CONTINUE POC AND MONITOR PT
--- NOTE | 2018-10-22 00:25 | NUR ---
RN ROUNDS PT RESTING IN BED. PT IN NO ACUTE DISTRESS. NO S/S OF PAIN NOTED. BREATHING IS UNLABORED TO ROOM AIR. NO NEEDS AT THIS TIME. SAFETY PRECAUTIONS ARE IN PLACE. WILL CONTINUE POC AND MONITOR PT
[2018-10-22 01:01] VITALS: BP_SYST 129
--- NOTE | 2018-10-22 04:15 | NUR ---
RN ROUNDS PT RESTING IN BED WITH EYES CLOSED. PT IN NO ACUTE DISTRESS. NO S/S OF PAIN NOTED. BREATHING IS UNLABORED TO ROOM AIR. NO NEEDS AT THIS TIME. SAFETY PRECAUTIONS ARE IN PLACE. WILL CONTINUE POC AND MONITOR PT
--- NOTE | 2018-10-22 06:05 | NUR ---
RN ROUNDS PT RESTING IN BED WITH EYES CLOSED. PT IN NO ACUTE DISTRESS. NO S/S OF PAIN NOTED. NO NEEDS AT THIS TIME. SAFETY PRECAUTIONS ARE IN PLACE. WILL CONTINUE POC AND MONITOR PT.
[2018-10-22 06:17] LABS: BASOPHILS % (AUTO) 0.6 % (0.0-2.0); EOSINOPHILS # (AUTO) 0.2 K/uL (0.0-0.4); EOSINOPHILS % (AUTO) 2.9 % (0.0-4.0); HEMATOCRIT 33.7 % (36-48); HEMOGLOBIN 11.6 g/dL (12.0-16.0); LYMPHOCYTES # (AUTO) 0.7 K/uL (1.0-5.5); MEAN CORPUSCULAR HEMOGLOBIN 30 pg (27-31); MEAN CORPUSCULAR HGB CONC 35 % (32-36); MEAN CORPUSCULAR VOLUME 87 fL (79.0-98.0); MONOCYTES # (AUTO) 0.7 K/uL (0.0-1.0); MONOCYTES % (AUTO) 9.4 % (1.7-9.3); NEUTROPHILS # (AUTO) 5.9 K/uL (1.8-7.7); NEUTROPHILS % (AUTO) 78.1 % (40.0-70.0); PLATELET COUNT (AUTO) 189 K/uL (130-430); WHITE BLOOD COUNT (AUTO) 7.6 K/uL (4.8-10.8)
[2018-10-22 06:18] LABS: ANION GAP 5 (5-15); CALCIUM 8.7 mg/dL (8.4-11.0); CHLORIDE 105 mmol/L (98-107); CREATININE 0.87 mg/dL (0.55-1.30); GLUCOSE 97 mg/dL (70-99); POTASSIUM 3.5 mmol/L (3.5-5.1); SODIUM SERUM 138 mmol/L (136-145); UREA NITROGEN, BLOOD 13 mg/dL (8-21)
--- NOTE | 2018-10-22 06:59 | NUR ---
CLOSING NOTE PT RESTING IN BED, AAOX4, IN NO ACUTE DISTRESS. PT DENIES PAIN OR DISCOMFORT. BREATHING IS UNLABORED TO ROOM AIR. ALL SCHEDULED MEDICATIONS ADMINISTERED ORDERED. ALL NEEDS MET THROUGHOUT SHIFT. SAFETY PRECAUTIONS ARE IN PLACE. WILL CONTINUE TO MONITOR UNTIL PT CARE IS ENDORSED TO DAY SHIFT RN
--- NOTE | 2018-10-22 08:00 | NUR ---
initial notes rec patient awake alert with hob elevated. ivl on the r forearm intact/ no infiltration noted. resp easu and unlabored. no osb noted. bed to the lowest position and side rails up and locked. call light within reached and knows when to call for assiatnce.
[2018-10-22 08:31] VITALS: BP_SYST 132
[2018-10-22] MEDS: PANTOPRAZOLE SODIUM 40 MG/VIAL (PROTONIX) IVP SCH (09:33)
--- NOTE | 2018-10-22 10:27 | NUR ---
rounds dr tidwell came and pt requesting for an anxiety med. assisted to the br at intervals with steady gait. no sob noted. call light within reached. call light within reached.
[2018-10-22] MEDS ORDERED: LORazepam 1 MG TABLET PO ONE (10:30)
--- NOTE | 2018-10-22 11:42 | NUR ---
Nutrition Assessment (short note d/t lack of time) A- RD reviewed pt's current EMR including diet Hx, physician notes, nursing notes, pertinent labs/meds/procedures, care trends and care activity. Primary Dx: GI bleed. RD Notification received for poor PO intake >1 week d/t decreased appetite. Pt seen resting in bed at time of RD visit. Pt is pure Greek speaking only and was not able to provide nutritional information. Per OTOLARYNGOLOGY REP, pt was able to tolerate Full liquid diet this morning, ate about 50% of it. Pt dislikes the Ensure Vanilla flavor, was provided w/ strawberry flavor but pt did not drink it d/t medical procedure. Per bed huddle discussion, pt is for MRI of the brain today. Pt w/ Soft Low fiber bland diet order for lunch today. Ht: 5'6 Wt:99 lb %IBW: 76 IBW:130 lb, 59 kg ESTIMATED NUTRITIONAL REQUIREMENTS CALORIES/DAY: 9075-8501 kcal/day (30-35 kcal/kg IBW for wt gain promotion) PROTEIN/DAY: 89-118 gm/day (1.5-2gm/kg IBW for wt gain promotion) FLUID/DAY: 1.5 L/day (25ml/kg IBW for Geriatric maintenance) D: Underweight r/t chronic illness AEB BMI 16 kg/m2 and 76% IBW. I: 1. Recommend continuing Soft Low Fiber/[place] diet per MD orders. 2. Recommend adding Ensure Enlive TID. ONS will provide additional 1050 kcal and 60 gm protein daily. M: Monitor appetite and PO intake w/ goal of pt meeting at least 75% of estimated nutritional needs, labs trending WNL, normal GI function, skin integrity/wt maintenance. E: RD to F/U HR within 2-3 days JOSE ELIAS CHAVEZ
--- NOTE | 2018-10-22 11:53 | NUR ---
Dietitian recommendation I: 1. Recommend continuing Soft Low Fiber/Smith diet per MD orders. 2. Recommend adding Ensure Enlive TID. ONS will provide additional 1050 kcal and 60 gm protein daily. KATHY, RD
--- NOTE | 2018-10-22 12:30 | NUR ---
rounds went to mri and back via wheelchair. no sob noted.
[2018-10-22] MEDS: SOD FERRIC GLUC COMPLEX/SUC 125 MG in NS 100 ML IV SCH (12:45)
[2018-10-22] MEDS ORDERED: LEVOFLOXACIN 250 MG/D5W 50 ML IV SCH (14:00)
[2018-10-22] MEDS ORDERED: PRO40 PO (14:09)
[2018-10-22] MEDS ORDERED: MULT-1117 PO (14:10)
[2018-10-22] MEDS ORDERED: Vit B12 PO (14:14)
[2018-10-22] MEDS ORDERED: CIPR-172 PO (14:15)
--- NOTE | 2018-10-22 14:26 | NUR ---
rounds seen by dr car at bedside and informed patient with an language interpreter that patient can go home after seen by dr shin. no sob noted.
[2018-10-22 15:45] VITALS: BP_SYST 147
--- NOTE | 2018-10-22 16:21 | NUR ---
closing notes pt was discharged accompanied by pt's son. instructed appt with dr fuller in a month and dr evans shin in 3 weeks. no sob noted. ivl and id band was removed. stable and needs attended.
[2018-10-22 16:45] VITALS: BP_SYST 147
== END 2018-10-22 16:20 | disposition home or self-care (01) | DRG 378 ==
LOC: SED 21:30 → STU 10-20 01:05 → SMU 10-22 15:14
PROVIDERS: ADMIT Internal Medicine; ATTEND Internal Medicine
PROC: 30233N1 Transfusion of Nonautologous Red Blood Cells into Peripheral Vein, Percutaneous Approach (ICD-10-PCS; principal; 2018-10-20)
PROC: 0DB68ZX Excision of Stomach, Via Natural or Artificial Opening Endoscopic, Diagnostic (ICD-10-PCS; 2018-10-21)
DX: K29.71 Gastritis, unspecified, with bleeding (principal); N39.0 Urinary tract infection, site not specified; D62 Acute posthemorrhagic anemia; K25.4 Chronic or unspecified gastric ulcer with hemorrhage; G43.909 Migraine, unspecified, not intractable, without status migrainosus; E78.00 Pure hypercholesterolemia, unspecified; E53.8 Deficiency of other specified B group vitamins; E61.1 Iron deficiency; I65.29 Occlusion and stenosis of unspecified carotid artery; Z88.6 Allergy status to analgesic agent; Z91.018 Allergy to other foods; Z79.899 Other long term (current) drug therapy; Z79.2 Long term (current) use of antibiotics; Z86.73 Personal history of transient ischemic attack (TIA), and cerebral infarction without residual deficits
CPT/HCPCS: 36415; 43239; 70551; 80048; 80053; 81000-TC; 82272; 83690-TC; 85025; 85610-TC; 85730-TC; 86886; 86900; 86901; 86920; 87086; 88305; 88312; 88313; 93005; 96361; 96374; 99285; C9113; G0378; J0696; J1956; J2250; J2916; J3010; J3420; J7050; J7060; P9021

== ENCOUNTER 2019-02-20 09:01 | Emergency (ER) | payer OTHER ==
[~2019-02-20] VITALS: Ht 157.5 cm; Wt 54.4 kg
[~2019-02-20 09:01] MED LIST changes: +CIPR-172 PO; -LEVO750T45 PO; +MULT-1117 PO; +Vit B12 PO
--- NOTE | 2019-02-20 09:06 | NUR ---
Patient to ER bed 8 to gown for evaluation. Side rails up.
[2019-02-20 09:07] VITALS: BP_SYST 114
--- NOTE | 2019-02-20 09:18 | NUR ---
ER Dr. White at bedside examining patient.
--- NOTE | 2019-02-20 09:25 | NUR ---
X-ray at bedside.
[2019-02-20] MEDS ORDERED: ACETAMINOPHEN 500 MG TABLET PO ONE (09:30)
[2019-02-20 09:45] VITALS: BP_SYST 118
--- NOTE | 2019-02-20 09:45 | NUR ---
Patient given written and verbal discharge instructions and verbalizes understanding. ER MD discussed with patient the results and treatment provided. Patient in stable condition. ID arm band removed. Patient educated on pain management and to follow up with PMD. Pain Scale 310, Dr. White is aware. Opportunity for questions provided and answered. Medication side effect fact sheet provided.
== END 2019-02-20 09:45 | disposition home or self-care (01) ==
LOC: SED 09:01
DX: S20.211A Contusion of right front wall of thorax, initial encounter (principal); E78.00 Pure hypercholesterolemia, unspecified; Z91.018 Allergy to other foods; Z88.8 Allergy status to other drugs, medicaments and biological substances; W18.39XA Other fall on same level, initial encounter; Y93.89 Activity, other specified; Y92.89 Other specified places as the place of occurrence of the external cause; Y99.8 Other external cause status
CPT/HCPCS: 71100; 73060-TC; 99283

== ENCOUNTER 2022-04-03 17:32 | Emergency (ER) | payer OTHER ==
[~2022-04-03] VITALS: Ht 160 cm; Wt 54.4 kg
[~2022-04-03 17:32] MED LIST changes: -CIPR-172 PO; +CIPR250T4 PO
[2022-04-03 17:51] VITALS: BP_SYST 149
--- NOTE | 2022-04-03 19:00 | NUR ---
ER examining patient in the triage room.
[2022-04-03 19:40] LABS: BASOPHILS # (AUTO) 0.1 K/uL (0.0-0.2); BASOPHILS % (AUTO) 1.3 % (0.0-2.0); EOSINOPHILS # (AUTO) 0.3 K/uL (0.0-0.4); EOSINOPHILS % (AUTO) 6.2 % (0.0-4.0); HEMATOCRIT 37.8 % (36-48); HEMOGLOBIN 12.9 g/dL (12.0-16.0); LYMPHOCYTES # (AUTO) 1.6 K/uL (1.0-5.5); LYMPHOCYTES % (AUTO) 29.6 % (20.5-51.5); MEAN CORPUSCULAR HEMOGLOBIN 29 pg (27-31); MEAN CORPUSCULAR HGB CONC 34 % (32-36); MEAN CORPUSCULAR VOLUME 85 fL (79.0-98.0); MONOCYTES # (AUTO) 0.3 K/uL (0.0-1.0); MONOCYTES % (AUTO) 5.9 % (1.7-9.3); PLATELET COUNT (AUTO) 256 K/uL (130-430); RED BLOOD CELL COUNT(AUTO) 4.46 MIL/uL (4.2-6.2); RED CELL DISTRIBUTION WIDTH 12.6 % (9.0-15.0); WHITE BLOOD COUNT (AUTO) 5.3 K/uL (4.8-10.8)
[2022-04-03 19:41] LABS: ANION GAP 7 (5-15); CALCIUM 9.1 mg/dL (8.4-11.0); CHLORIDE 103 mmol/L (98-107); CREATININE 0.94 mg/dL (0.55-1.30); GLUCOSE 98 mg/dL (70-99); UREA NITROGEN, BLOOD 16 mg/dL (8-21)
[2022-04-03 19:50] LABS: ALANINE AMINOTRANSFERASE 16 U/L (12-78); ALBUMIN 3.9 g/dL (3.4-4.8); ASPARTATE AMINOTRANSFERASE 20 U/L (10-37); TOTAL BILIRUBIN 0.2 mg/dL (0.0-1.0)
--- NOTE | 2022-04-03 20:50 | NUR ---
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 Pain started today, from front forehead radiating to neck. Presently, patient C/O no pain. Patient connected to .
--- NOTE | 2022-04-03 20:50 | NUR ---
Placed in room 7 . Placed on detonator assembler, blood pressure machine and pulse oximeter. To gown for exam. Side rails up. Report given to Haroon MEJIA(reg).
--- NOTE | 2022-04-03 21:45 | NUR ---
Dr. Adames at bedside discussing labs, diagnostics & Tx plan. MD will discharge patient home..
--- NOTE | 2022-04-03 22:14 | NUR ---
Patient discharged by JACK Palacios.
--- NOTE | 2022-04-03 22:17 | NUR ---
Patient given written and verbal discharge instructions and verbalizes understanding. ER MD discussed with patient the results and treatment provided. Patient in stable condition. ID arm band removed. no Rx of given. Patient educated on pain management and to follow up with PMD. Pain Scale 0/10. Opportunity for questions provided and answered. Medication side effect fact sheet provided.
[2022-04-03 22:18] VITALS: BP_SYST 176
== END 2022-04-03 22:18 | disposition home or self-care (01) ==
LOC: SED 17:32
DX: R51.9 Headache, unspecified (principal); M62.838 Other muscle spasm; F43.9 Reaction to severe stress, unspecified; Z91.014 Allergy to mammalian meats; Z79.899 Other long term (current) drug therapy
CPT/HCPCS: 36415; 70450-TC; 71045; 76376; 80053; 81002; 84484; 85025; 93005; 99285

== ENCOUNTER 2022-05-29 10:19 | Emergency (ER) | payer OTHER ==
[~2022-05-29] VITALS: Ht 157.5 cm; Wt 49.9 kg
[2022-05-29 10:20] VITALS: BP_SYST 123
--- NOTE | 2022-05-29 10:20 | NUR ---
BROUGHT BACK TO BED #4 AND TRIAGED. REPORT GIVEN TO MICHAEL
--- NOTE | 2022-05-29 10:31 | NUR ---
DR MCCAIN AT BEDSIDE FOR EVALUATION
--- NOTE | 2022-05-29 10:40 | NUR ---
RECEIVED PT FROM ROBERTO PANTOJA. PT BIB GRANDDAUGHTER FOR WEAKNESS AND POOR APPETITE X2 DAYS. PT IS AAO4. ON R/A. DENIES N/V/D/C. DISTAL PULSES NORMAL. SKIN WARM NO EDEMA. PT HAS C/O STOMACH AND NECK PAIN 4/10. SIDERAILS UP X2.
[2022-05-29] MEDS ORDERED: NACL 0.9% 1,000 ML IV ONE (11:00)
[2022-05-29 11:29] LABS: BASOPHILS % (AUTO) 0.7 % (0.0-2.0); EOSINOPHILS % (AUTO) 0.3 % (0.0-4.0); HEMATOCRIT 42.8 % (36-48); HEMOGLOBIN 14.4 g/dL (12.0-16.0); LYMPHOCYTES # (AUTO) 1.3 K/uL (1.0-5.5); LYMPHOCYTES % (AUTO) 22.6 % (20.5-51.5); MEAN CORPUSCULAR HEMOGLOBIN 29 pg (27-31); MEAN CORPUSCULAR HGB CONC 34 % (32-36); MEAN CORPUSCULAR VOLUME 86 fL (79.0-98.0); MONOCYTES # (AUTO) 0.3 K/uL (0.0-1.0); MONOCYTES % (AUTO) 4.9 % (1.7-9.3); NEUTROPHILS # (AUTO) 4.2 K/uL (1.8-7.7); NEUTROPHILS % (AUTO) 71.5 % (40.0-70.0); PLATELET COUNT (AUTO) 276 K/uL (130-430); RED BLOOD CELL COUNT(AUTO) 4.99 MIL/uL (4.2-6.2); RED CELL DISTRIBUTION WIDTH 13.2 % (9.0-15.0); WHITE BLOOD COUNT (AUTO) 5.8 K/uL (4.8-10.8)
[2022-05-29 11:38] LABS: ANION GAP 8 (5-15); CALCIUM 9.6 mg/dL (8.4-11.0); CHLORIDE 100 mmol/L (98-107); CREATININE 1.06 mg/dL (0.55-1.30); GLUCOSE 112 mg/dL (70-99); UREA NITROGEN, BLOOD 16 mg/dL (8-21)
[2022-05-29 11:42] LABS: ALANINE AMINOTRANSFERASE 21 U/L (12-78); ALBUMIN 4.5 g/dL (3.4-4.8); ASPARTATE AMINOTRANSFERASE 19 U/L (10-37); LIPASE 107 U/L (73-393); TOTAL BILIRUBIN 0.8 mg/dL (0.0-1.0)
[2022-05-29 11:45] LABS: C-REACTIVE PROTEIN QUANT < 0.2 mg/dL (0-0.5)
--- NOTE | 2022-05-29 11:46 | NUR ---
EKG COMPLETED, PT RECEIVING U/S AT ABDOMEN AT THIS TIME. NS 1000ML BOLUS INITIATED.
[2022-05-29 11:52] LABS: BILIRUBIN,URINE NEGATIVE (NEGATIVE); CLARITY/URINE CLEAR (CLEAR); COLOR,URINE YELLOW (YELLOW); GLUCOSE,URINE NEGATIVE (NEGATIVE); KETONES,URINE NEGATIVE (NEGATIVE); LEUKOCYTE ESTERASE ,URINE NEGATIVE (NEGATIVE); NITRITE, URINE NEGATIVE (NEGATIVE); PROTEIN URINE 1+ (NEGATIVE); UROBILINOGEN,URINE 0.2 (0.2-1.0)
[2022-05-29 12:02] LABS: BLOOD, URINE TRACE (NEGATIVE)
[2022-05-29 12:14] LABS: BACTERIA,URINE RARE /HPF (None Seen); MUCUS,URINE 1+ /LPF (None Seen)
[2022-05-29 12:17] LABS: URINE AMORPHOUS URATE 1+ /HPF (None Seen)
--- NOTE | 2022-05-29 13:30 | NUR ---
DR. MCCAIN AT BEDSIDE TO DISCUSS POC.
[2022-05-29] MEDS ORDERED: ALPR0.25 PO ×2 (13:42→14:37)
[2022-05-29 14:22] VITALS: BP_SYST 133
--- NOTE | 2022-05-29 14:23 | NUR ---
Patient given written and verbal discharge instructions and verbalizes understanding. ER MD discussed with patient the results and treatment provided. Patient in stable condition. ID arm band removed. IV catheter removed intact and dressing applied, no active bleeding. Rx of XANAX given. Patient educated on pain management and to follow up with PMD. Pain Scale 0/10. Opportunity for questions provided and answered. Medication side effect fact sheet provided.
== END 2022-05-29 14:23 | disposition home or self-care (01) ==
LOC: SED 10:19
DX: R53.1 Weakness (principal); F41.9 Anxiety disorder, unspecified; G47.00 Insomnia, unspecified; Z88.8 Allergy status to other drugs, medicaments and biological substances; Z79.899 Other long term (current) drug therapy
CPT/HCPCS: 99285; 96360; 76700; 71045; 80053; 81000; 82550; 83690; 85025; 85610; 85730; 86140; 87040; 87086; 84484; 36415; 93005; 83605; J7030

== ENCOUNTER 2023-03-17 17:04 | Emergency (ER) | payer OTHER ==
[~2023-03-17 17:04] MED LIST changes: +ALPR0.25 PO
== END 2023-03-17 18:07 | disposition left against medical advice (07) ==
LOC: SED 17:04
DX: R10.9 Unspecified abdominal pain (principal); Z53.21 Procedure and treatment not carried out due to patient leaving prior to being seen by health care provider